=== PATIENT | female | born 1995 | race African-American/Black ===

== ENCOUNTER 2020-10-15 06:59 | Inpatient (IN) | payer OTHER ==
[~2020-10-15] VITALS: Ht 172.7 cm; Wt 98.9 kg
[~2020-10-15 06:59] MED LIST: OMNICEF 300 MG300 MG PO
[2020-10-15] MEDS ORDERED: PRENATAL TABLE1 EAC1 PO (07:51)
[2020-10-15 08:06] LABS: HEMOGLOBIN 11.7 gm/dl (12.3-15.3); RED BLOOD COUNT 4.51 M/UL (4.00-5.10); WHITE BLOOD COUNT 6.7 K/UL (4.5-11.0)
[2020-10-15] MEDS ORDERED: COLACE 100MG C100 MG PO (09:02)
[2020-10-15] MEDS ORDERED: HYDROCODON-ACE1 EAC6 PO (09:02)
[2020-10-15] MEDS ORDERED: IBUPROFEN600 MG PO (09:02)
[2020-10-20 02:11] LABS: AMPHETAMINE Positive (.); AMPHETAMINE GC/MS CONF 3600 ng/mL (Cutoff=500); AMPHETAMINES Positive (Cutoff=1000); AMPHETAMINES, URINE See Final Results ng/mL (Cutoff=1000); BARBITURATE Negative ng/mL (Cutoff=200); BENZODIAZEPINES Negative ng/mL (Cutoff=200); CANNABINOID Positive (Cutoff=20); CANNABINOIDS See Final Results ng/mL (Cutoff=20); CARBOXY THC GC/MS CONF 26 ng/mL (Cutoff=10); COCAINE (METABOLITE) Negative ng/mL (Cutoff=300); CREATININE 54.7 mg/dL (20.0-300.0); MEPERIDINE Negative ng/mL (Cutoff=200); METHADONE Negative ng/mL (Cutoff=300); METHAMPHETAMINE Positive (.); METHAMPHETAMINE GC/MS CONF >3000 ng/mL (Cutoff=500); OPIATES Negative ng/mL (Cutoff=300); PHENCYCLIDINE Negative ng/mL (Cutoff=25); PROPOXYPHENE Negative ng/mL (Cutoff=300)
== END 2020-10-17 12:30 | disposition home or self-care (01) | DRG 788 ==
LOC: OB 06:59
PROVIDERS: ADMIT Obstetrics & Gynecology
PROC: 4A1HXCZ Monitoring of Products of Conception, Cardiac Rate, External Approach (ICD-10-PCS; 2020-10-15)
PROC: 10D00Z1 Extraction of Products of Conception, Low, Open Approach (ICD-10-PCS; principal; 2020-10-15 09:45)
DX: O34.211 Maternal care for low transverse scar from previous cesarean delivery (principal); Z3A.39 39 weeks gestation of pregnancy; Z37.0 Single live birth; Z20.822 Contact with and (suspected) exposure to COVID-19; O99.334 Smoking (tobacco) complicating childbirth; F17.210 Nicotine dependence, cigarettes, uncomplicated
CPT/HCPCS: 36415; 80307; 81001; 82800; 85014; 85018; 85025; 90471; 90715; 94760; C9113; J0690; J1170; J1650; J1885; J2001; J2274; J2370; J2550; J2590; J3010; J7120; U0003

== ENCOUNTER 2021-10-03 17:15 | Emergency (ER) | payer OTHER ==
[~2021-10-03 17:15] MED LIST changes: +COLACE 100MG C100 MG PO; +HYDROCODON-ACE1 EAC6 PO; +IBUPROFEN600 MG PO; +PRENATAL TABLE1 EAC1 PO
[2021-10-03 18:45] LABS: RED BLOOD COUNT 5.21 M/UL (4.00-5.10); WHITE BLOOD COUNT 13.1 K/UL (4.5-11.0)
[2021-10-03 18:55] LABS: BUN/CREATININE RATIO 18 (0-10)
== END 2021-10-03 19:45 | disposition left against medical advice (07) ==
LOC: ER1 17:15
PROVIDERS: Nurse Practitioner
DX: O99.891 Other specified diseases and conditions complicating pregnancy (principal); R10.9 Unspecified abdominal pain; O99.331 Smoking (tobacco) complicating pregnancy, first trimester; F17.290 Nicotine dependence, other tobacco product, uncomplicated; Z3A.01 Less than 8 weeks gestation of pregnancy; Z88.8 Allergy status to other drugs, medicaments and biological substances
CPT/HCPCS: 80053; 81001; 85025; 99283; J7030

== ENCOUNTER → 2021-10-11 | Day surgery (SDC) | payer OTHER ==
[~2021-10-11] MED LIST changes: +HYDROCODONE-AC1 EACH PO; +PROZAC20 MG PO
[2021-10-11 07:10] LABS: RED BLOOD COUNT 4.88 M/UL (4.00-5.10); WHITE BLOOD COUNT 9.2 K/UL (4.5-11.0)
== END | disposition home or self-care (01) ==
LOC: OR 06:33
PROVIDERS: Obstetrics & Gynecology
DX: O02.1 Missed abortion (principal); F41.9 Anxiety disorder, unspecified; F32.A Depression, unspecified; Z87.891 Personal history of nicotine dependence; Z88.8 Allergy status to other drugs, medicaments and biological substances
CPT/HCPCS: 36415; 81001; 85025; J1100; J2001; J2250; J2405; J2550; J2704; J7120